=== PATIENT | female | born 1990 | race Caucasian/White ===

== ENCOUNTER 2016-08-31 02:05 | Inpatient (IN) | payer BC ==
[2016-08-31 03:04] LABS: APPEARANCE,URINE SLIGHTLY-CLOUDY; BILIRUBIN,URINE NEGATIVE (NEGATIVE); GLUCOSE, URINE NEGATIVE (NEGATIVE); KETONES,URINE NEGATIVE (NEGATIVE); LEUKOCYTE ESTERASE,URINE SMALL (NEGATIVE); NITRITE,URINE NEGATIVE (NEGATIVE); PROTEIN,URINE NEGATIVE (NEGATIVE); URINE SPECIFIC GRAVITY 1.005; UROBILINOGEN,URINE NEGATIVE mg/dL (<2.0)
[2016-08-31 04:12] LABS: URINE BARBITURATES SCREEN NEGATIVE; URINE METHADONE SCREEN NEGATIVE; URINE OPIATES LOW NEGATIVE; URINE PHENCYCLIDINE SCREEN NEGATIVE
[2016-08-31] MEDS ORDERED: RINGERS SOLUTION,LACTATED 1,000 ML IV ONE (06:01)
[2016-08-31 06:10] LABS: ABSOLUTE MONOCYTES (AUTO) 0.7 10^3/uL (0.1-1.4); ABSOLUTE NEUT (AUTO) 15.5 10^3/uL (1.7-8.2); BASOPHILS % (AUTO) 0.2 % (0-2); HEMATOCRIT 38.7 % (36.0-47.0); HEMOGLOBIN 12.7 g/dL (12.0-15.5); HGB HCT DIFFERENCE -0.6; LYMPHOCYTES % (AUTO) 10.9 % (13-45); MEAN CORPUSCULAR HEMOGLOBIN 27.5 pg (27.0-33.4); MEAN CORPUSCULAR HGB CONC 32.9 g/dL (32.0-36.0); MEAN CORPUSCULAR VOLUME 84 fl (80-97); MONOCYTES % (AUTO) 3.9 % (3-13); RED BLOOD COUNT 4.62 10^6/uL (3.72-5.28); RED CELL DISTRIBUTION WIDTH 14.6 % (11.5-14.0); WHITE BLOOD COUNT 18.3 10^3/uL (4.0-10.5)
[2016-08-31] MEDS ORDERED: NALBUPHINE HCL INJ 10 MG/1 ML AMPULE ONE ×2 (06:34→10:42)
[2016-08-31] MEDS ORDERED: NALBUPHINE HCL INJ 10 MG/1 ML AMPULE INJ ONE (06:36)
[2016-08-31] MEDS ORDERED: OXYTOCIN/NORMAL SALINE 20 UNIT/1,000 ML RTUINJ ONE (08:11)
[2016-08-31] MEDS ORDERED: LIDOCAINE 1% INJ-PF (10 MG/ML) 30 ML SDV ONE (08:11)
[2016-08-31] MEDS ORDERED: MISOPROSTOL 0.2 MG TABLET ONE (08:11)
[2016-08-31] MEDS ORDERED: FENTANYL CITRATE INJ/PF 100 MCG/2 ML AMPUL ONE ×2 (10:44→10:47)
[2016-08-31] MEDS ORDERED: METHYLERGONOVINE MALEATE INJ/PF 0.2 MG/1 ML AMPULE ONE (12:45)
[2016-08-31] MEDS ORDERED: BENZOCAINE/MENTHOL AEROSOL SPRAY 56 ML ONE ×2 (13:21→15:15)
[2016-08-31] MEDS ORDERED: MEASLES,MUMPS&RUBELLA VACC/PF 0.5 ML VIAL SUBCUT PRN (13:27)
[2016-08-31] MEDS ORDERED: OXYTOCIN/NORMAL SALINE 1,000 ML IV PRN (13:27)
[2016-08-31] MEDS ORDERED: METHYLERGONOVINE MALEATE INJ/PF 0.2 MG/1 ML AMPULE IM PRN (13:27)
[2016-08-31] MEDS ORDERED: DIPH/PERTUSS(ACELL)/TETANUS VAC/PF 0.5 ML SYR (>=10YO) IM PRN (13:27)
[2016-08-31] MEDS ORDERED: BENZOCAINE/MENTHOL AEROSOL SPRAY 56 ML TOP PRN (13:27)
[2016-08-31] MEDS ORDERED: ZOLPIDEM TARTRATE 5 MG TABLET PO PRN (13:27)
[2016-08-31] MEDS ORDERED: ACETAMINOPHEN WITH CODEINE #3 TABLET PO PRN ×2 (13:27)
[2016-08-31] MEDS ORDERED: DIBUCAINE 1% OINTMENT 28 GM TP PRN (13:27)
--- NOTE | 2016-08-31 15:36 | Admission Physical ---
Datetime Report Generated by CPN: 08/31/2016 15:35 CURRENT ADMISSION Chief Complaint: Uterine Contractions Indication for Induction: Not Applicable Admit Plan: Admit to Unit; Initiate Labor Protocol ALLERGIES Medication Allergies: Yes Medication Allergies: Pertussis Vaccines (08/31/2016) Medication Allergies: Pertussis Vaccines (08/31/2016), medical tape Latex: No Latex Allergies OBSTETRICAL HISTORY EDC: 09/02/2016 00:00 : 1 Para: 0 Term: 0 : 0 SAB: 0 IAB: 0 Ectopic: 0 Livin Cesareans: 0 VBACs: 0 Multiple Births: 0 Gestational Diabetes: Yes Rh Sensitization: No Incompetent Cervix: No DERECK: No Infertility: No ART Treatment: No Uterine Anomaly: No IUGR: No Hx Previous C/S: No Macrosomia: No Hx Loss/Stillborn: No PIH: No Hx : No Placenta Previa/Abruption: No Depression/PP Depression: No PTL/PROM: No Post Hemorrhage: No Current Procedures: Ultrasound; NST Obstetrical History Comments: G1 - Current, GDM- diet controlled SEE RECORDS Alcohol: No Marijuana : No Cocaine: No Other Illicit Drugs: No Cigarettes: Never Smoker. [id number] MEDICAL HISTORY Diabetes: Yes Diabetes Type: Gestational Diabetes Blood Transfusion: No Pulmonary Disease (Asthma, TB): No Breast Disease: No Hypertension: No Managing Editor Surgery: No Heart Disease: No Hosp/Surgery: No Autoimmune Disorder: No Anesthetic Complications: No Kidney Disease: No Abnormal Pap Smear: No Neuro/Epilepsy: No Psychiatric Disorders: No Other Medical Diseases: No Hepatitis/Liver Disease: No Significant Family History: No Varicosities/Phlebitis: No Trauma/Violence : No Thyroid Dysfunction: No INFECTIOUS HISTORY Gonorrhea: No Genital Herpes: No Chlamydia: No Tuberculosis: No Syphilis: No Hepatitis: No HIV/AIDS Exposure: No Rash or Viral Illness: No HPV: No PHYSICAL EXAM General: Normal HEENT: Normal Neurologic: Normal Thyroid: Normal Heart: Normal Lungs: Normal Breast: Normal Back: Normal Abdomen: Normal Genitourinary Exam: Normal Extremities: Normal DTRs: Normal Pelvic Type: Adequate Vital Signs: Reviewed; Within Normal Limits VAGINAL EXAM Dilatation: 5 Effacement: 90 Station: -2 Contraction Comments: 2-3 min MEMBRANES Pooling: Negative Membranes: Intact FETUS A EGA: 39.5 Monitoring: External US FHR- Baseline: 150 Variability: Moderate 6-25bpm Accelerations: 10X10 Decelerations: Variable FHR Category: Category II Estimated Weight (gm): 3900 Presentation: Vertex PLANS FOR LABOR AND DELIVERY Labor and Delivery: None Pain Management: Natural Feeding Preference: Breast Benefit of Breast Feed Discussed: Yes Circumcision: Yes INFORMED CONSENT Signature: with User ID: Ryan
[2016-08-31] MEDS: IBUPROFEN 800 MG TABLET PO SCH ×2 (16:50→21:17)
--- NOTE | 2016-08-31 17:16 | Delivery Summary ---
Del Sum A-C Datetime Report Generated by CPN: 08/31/2016 17:16 DELIVERY PERSONNEL DELIVERY PERSONNEL: [id number] Delivery Doctor:: Rios Renee, DO Labor and Delivery Nurse:: Nani Kahn RNbait maker Nurse:: Chayito Gaona RN Layout Inspector/CATEGORY DIRECTOR: Columba Damir, INWARD TOLL OPERATOR MATERNAL INFORMATION Delivery Anesthesia: Local Medications After Delivery: Pitocin Drip 20 Units/1000ml NSS Meds After Delivery Comment: Pitocin 20 units in 1000mL NS Estimated Blood Loss (ml): 300 Maternal Complications: None Provider Comments: of viable male in OLIVIA position Loose nuchal cord x1, easily reduced Placenta delievered spontaneous and intact with 3v cord Fundus firm after Methergine LABOR SUMMARY EDC: 09/02/2016 00:00 No. Babies in Womb: 1 Labor Anesthesia: None LABOR INFORMATION Reason for Induction: Not Applicable Onset of Labor: 08/31/2016 01:30 Complete Dilatation: 08/31/2016 11:17 Oxytocin: N/A Group B Beta Strep: negative Antibiotics # of Doses: 0 Steroids Given: None Reason Steroids Not Administered: Not Applicable MEMBRANES Membranes Rupture Method: Artificial Rupture of Membranes: 08/31/2016 11:17 Length of Rupture (hr): 1.30 Amniotic Fluid Color: Clear Amniotic Fluid Amount: Small Amniotic Fluid Odor: Normal STAGES OF LABOR Stage 1 hr: 9 Stage 1 min: 47 Stage 2 hr: 1 Stage 2 min: 18 Stage 3 hr: 0 Stage 3 min: 2 Total Time in Labor hr: 11 Total Time in Labor min: 7 VAGINAL DELIVERY Episiotomy: None Laceration Extension: Second Degree Laceration Type: Perineal Laceration Repair: Yes Laceration Repair Note: Repaired with 2-0 chromic in usual fashion and with good hemostasis Sponge Count Correct: Yes Sharps Count Correct: Yes BABY A INFORMATION Infant Delivery Date/Time: 08/31/2016 12:35 Method of Delivery: Vaginal Born in Route : No : N/A Forceps: N/A Vacuum Extraction: N/A Shoulder Dystocia : No PRESENTATION/POSITION BABY A Presentation: Cephalic Cephalic Presentation: Vertex PLACENTA INFORMATION BABY A Placenta Delivery Time : 08/31/2016 12:37 Placenta Method of Delivery: Spontaneous Placenta Status: Delivered SCORES BABY A Heart Rate 1 min: >100 bpm Resp Effort 1 min: Good Cry Reflex Irritability 1 min: Cough or Sneeze or Pulls Away Muscle Tone 1 min: Active Motion Color 1 min: Blue/Pale Resuscitation Effort 1 min: Tactile Stimulation SCORE 1 MIN: 8 Heart Rate 5 min: >100 bpm Resp Effort 5 min: Good Cry Reflex Irritability 5 min: Cough or Sneeze or Pulls Away Muscle Tone 5 min: Active Motion Color 5 min: Blue/Pale Resuscitation Effort 5 min: Tactile Stimulation SCORE 5 MIN: 8 INFORMATION BABY A Gestational Age at Delivery: 39.5 Gestational Status: Full Term- 39- 40.6 Weeks Outcome : Liveborn Infant Condition : Stable Infant Sex: Male IDENTIFICATION BABY A Infant Verification Date/Time: 08/31/2016 13:10 ID Band Number: [id number] Mother's Name Verified: Yes Infant RN Verifying Infant: B Baidy RN Additional Verifying Personnel: A Joyce RN CORD INFORMATION BABY A No. Cord Vessels: 3 Nuchal Cord : Around Neck x1, Loose Cord Blood Taken: Yes-For Eval (Mom's Blood Type - or O+) ASSESSMENT BABY A Infant Complications: None Physical Findings at Delivery: Within Normal Limits Infant Respirations: Appears Normal Skin to Skin: Yes Supervisor Bonding/ALS Called : No Care By: Trip Gaona RN Transferred To: Remains with Mother SIGNATURES Signature: with User ID: Kojo
[2016-08-31] MEDS: DOCUSATE SODIUM 100 MG CAPSULE PO SCH (17:23)
[2016-08-31] MEDS: FERROUS SULFATE 325 MG TABLET PO SCH (17:23)
[2016-09-01] MEDS: IBUPROFEN 800 MG TABLET PO SCH ×3 (05:42→21:36)
[2016-09-01 06:45] LABS: HEMATOCRIT 33.6 % (36.0-47.0); HEMOGLOBIN 10.9 g/dL (12.0-15.5); HGB HCT DIFFERENCE -0.9; MEAN CORPUSCULAR HEMOGLOBIN 27.7 pg (27.0-33.4); MEAN CORPUSCULAR HGB CONC 32.6 g/dL (32.0-36.0); MEAN CORPUSCULAR VOLUME 85 fl (80-97); RED BLOOD COUNT 3.95 10^6/uL (3.72-5.28); RED CELL DISTRIBUTION WIDTH 14.6 % (11.5-14.0); WHITE BLOOD COUNT 18.7 10^3/uL (4.0-10.5)
--- NOTE | 2016-09-01 10:15 | PDOC PROGRESS REPORT ---
Subjective-OB Subjective: Post Delivery Day: 26 year old. Denies any needs at this time Physical Exam (OB) Vital Signs: Temp Pulse Resp BP Pulse Ox 97.7 F 100 18 123/69 98 09/01/16 08:27 09/01/16 08:27 09/01/16 08:27 09/01/16 08:27 09/01/16 08:27 Intake & Output 08/31/16 09/01/16 09/02/16 06:59 06:59 06:59 Intake Total 1050 Balance 1050 Weight 116.95 kg - Lochia Lochia Amount: Scant < 10 ml Lochia Color: Rubra/Red - Abdomen Description: Tender, Soft Hernia Present: No Bowel Sounds: Normoactive Flatus Presence: Present Stool: No Fundal Description: Firm, Midline Fundal Height: u/u - u/2 Objective-Diagnostic Laboratory: 09/01/16 06:33 09/01/16 06:33 WBC 18.7 H RBC 3.95 Hgb 10.9 L Hct 33.6 L MCV 85 MCH 27.7 MCHC 32.6 RDW 14.6 H Plt Count 449
[2016-09-01] MEDS: PRENATAL VITAMIN W-O CA NO5/FE FUMARATE/FA CAPSULE PO SCH (10:36)
[2016-09-01] MEDS: SENNOSIDES/DOCUSATE 8.6-50 MG 1 EACH TABLET PO SCH (10:36)
[2016-09-01] MEDS: DOCUSATE SODIUM 100 MG CAPSULE PO SCH ×2 (10:36→18:00)
[2016-09-01] MEDS: FERROUS SULFATE 325 MG TABLET PO SCH ×2 (10:36→18:00)
[2016-09-02] MEDS: IBUPROFEN 800 MG TABLET PO SCH ×3 (05:22→21:00)
[2016-09-02 07:50] LABS: HEMATOCRIT 32.5 % (36.0-47.0); HEMOGLOBIN 10.6 g/dL (12.0-15.5); HGB HCT DIFFERENCE -0.7; MEAN CORPUSCULAR HEMOGLOBIN 27.7 pg (27.0-33.4); MEAN CORPUSCULAR HGB CONC 32.6 g/dL (32.0-36.0); MEAN CORPUSCULAR VOLUME 85 fl (80-97); RED BLOOD COUNT 3.81 10^6/uL (3.72-5.28); RED CELL DISTRIBUTION WIDTH 14.7 % (11.5-14.0); WHITE BLOOD COUNT 10.9 10^3/uL (4.0-10.5)
--- NOTE | 2016-09-02 09:43 | PDOC PROGRESS REPORT ---
Subjective-OB Subjective: Post Delivery Day: 26 year old. Denies any needs at this time Doing well, OOB in halls, voiding, taking diet well, scant bleeding Physical Exam (OB) Vital Signs: Temp Pulse Resp BP Pulse Ox 98.1 F 99 12 114/60 99 09/02/16 07:28 09/02/16 07:28 09/02/16 07:28 09/02/16 07:28 09/02/16 07:28 Intake & Output 09/01/16 09/02/16 09/03/16 06:59 06:59 06:59 Intake Total 1050 400 Balance 1050 400 - Lochia Lochia Amount: Small 10-25 ml Lochia Color: Rubra/Red - Abdomen Description: Tender, Soft Hernia Present: No Fundal Description: Firm, Midline Fundal Height: u/u - u/2 Objective-Diagnostic Laboratory: 09/02/16 07:35 09/02/16 07:35 WBC 10.9 H RBC 3.81 Hgb 10.6 L Hct 32.5 L MCV 85 MCH 27.7 MCHC 32.6 RDW 14.7 H Plt Count 431 Assessment and Plan(PN) - Assessment and Plan (1) Gestational diabetes mellitus (GDM) Qualifiers: Gestational diabetes mellitus control: diet-controlled Trimester: second trimester Qualified Code(s): O24.410 - Gestational diabetes mellitus in , diet controlled Is this a current diagnosis for this admission?: Yes (2) Delivery normal Is this a current diagnosis for this admission?: Yes - Time Spent with Patient Time with patient: Less than 15 minutes Medications reviewed and adjusted accordingly: Yes - Disposition Anticipated Discharge: Home Within: Other - home today
--- NOTE | 2016-09-02 09:49 | PDOC DISCHARGE SUMMARY ---
Final Diagnosis Discharge Date: 09/02/16 - Final Diagnosis (1) Gestational diabetes mellitus (GDM) Is this a current diagnosis for this admission?: Yes (2) Delivery normal Is this a current diagnosis for this admission?: Yes Discharge Data - Discharge Medication Home Medications: Pnv #116/Iron Fumarate/FA/Dha [Expecta Combo Pack] 1 each PO DAILY 01/07 Gestational Age: 39.5 Reason(s) for Admission: Onset of Labor, Gestional Diabetes Procedures: NST, Ultrasound Intrapartum Procedure(s): Spontaneous Vaginal Delivery Complication(s): Laceration-Perineal Laceration-Degree: 2nd - Data Baby 1 Male at 1 minute: 8 at 5 minutes: 8 Home with Mother: Yes Complications: No - Diagnosis Test Laboratory: Temp Pulse Resp BP Pulse Ox 98.1 F 99 12 114/60 99 09/02/16 07:28 09/02/16 07:28 09/02/16 07:28 09/02/16 07:28 09/02/16 07:28 08/31/16 08/31/16 09/01/16 02:40 05:51 06:33 RBC 4.62 3.95 Hgb 12.7 10.9 L Hct 38.7 33.6 L Urine Opiates Screen NEGATIVE 09/02/16 07:35 RBC 3.81 Hgb 10.6 L Hct 32.5 L Urine Opiates Screen - Discharge information/Instructions Discharge Activity: Activity As Tolerated, No Lifting Over 10 Pounds, No Lifting /Push/Pulling, Pelvic Rest Discharge Diet: As Tolerated Disposition: HOME, SELF-CARE Follow up with: [facility] in: 4, Weeks
[2016-09-02] MEDS: SENNOSIDES/DOCUSATE 8.6-50 MG 1 EACH TABLET PO SCH (10:26)
[2016-09-02] MEDS: PRENATAL VITAMIN W-O CA NO5/FE FUMARATE/FA CAPSULE PO SCH (10:26)
[2016-09-02] MEDS: DOCUSATE SODIUM 100 MG CAPSULE PO SCH ×2 (10:27→18:00)
[2016-09-02] MEDS: FERROUS SULFATE 325 MG TABLET PO SCH ×2 (10:27→18:00)
--- NOTE | 2016-09-02 14:24 | PDOC PROGRESS REPORT ---
Subjective-OB Subjective: Post Delivery Day: 26 year old. Denies any needs at this time lying in bed, nurses starting IV, no c/o, states earlier she was cold and shaking, denies pain or feeling bad, hsb at BS Physical Exam (OB) Vital Signs: Temp Pulse Resp BP Pulse Ox 102.9 F H 148 H 20 121/57 L 100 09/02/16 13:49 09/02/16 13:49 09/02/16 13:49 09/02/16 13:49 09/02/16 13:49 Intake & Output 09/01/16 09/02/16 09/03/16 06:59 06:59 06:59 Intake Total 1050 400 400 Balance 1050 400 400 - General General Appearance: Anxious In distress: None Note:: face flushed, can feel heart racing but she was anxious - Lochia Lochia Amount: Small 10-25 ml Lochia Color: Rubra/Red - Abdomen Description: Firm Hernia Present: No Fundal Description: Firm Fundal Height: u/u - u/2 - Respiratory Chest Status: Nontender Breath sounds: Clear Chest Palpation: Normal - Cardiovascular Rhythm: Tachycardia, Other - pulse - Genitourinary Lochia: Mild - Extremities Lower extremities: Normal inspection Hip: Normal Thigh: Normal Knee: Normal Calf: Normal - good capillary refill Ankle: Normal Foot: Normal - Neurological Orientation: Alert Speech: Normal Sensory: Normal - Psychological Associated symptoms: Normal mood, Anxious - Skin Skin Temperature: Hot Skin Moisture: Dry, Moist Skin Color: Flushed Skin note:: face flushed Objective-Diagnostic Laboratory: 09/02/16 07:35 09/02/16 07:35 WBC 10.9 H RBC 3.81 Hgb 10.6 L Hct 32.5 L MCV 85 MCH 27.7 MCHC 32.6 RDW 14.7 H Plt Count 431 Assessment and Plan(PN) - Assessment and Plan (1) Gestational diabetes mellitus (GDM) Qualifiers: Gestational diabetes mellitus control: diet-controlled Trimester: second trimester Qualified Code(s): O24.410 - Gestational diabetes mellitus in , diet controlled Is this a current diagnosis for this admission?: Yes (2) Delivery normal Is this a current diagnosis for this admission?: Yes - Time Spent with Patient Medications reviewed and adjusted accordingly: Yes - Disposition Anticipated Discharge: Home Within: within 48 hours - cancel d/C, discussed POC with pt and Dr. Fan, Dr. Fan will write orders for antibiotics, blood cultures, CMP, chest xray, Tylenol now for fever
[2016-09-02] MEDS ORDERED: ACETAMINOPHEN 325 MG TABLET PO ONE (14:30)
--- NOTE | 2016-09-02 15:25 | RADIOLOGY REPORT (SQ) ---
EXAM DESCRIPTION: CHEST PA/LAT COMPLETED DATE/TIME: 09/02/2016 2:49 pm REASON FOR STUDY: elevated HR, temp 102.9 COMPARISON: None. EXAM PARAMETERS: NUMBER OF VIEWS: two views TECHNIQUE: Digital Frontal and Lateral radiographic views of the chest acquired. RADIATION DOSE: NA LIMITATIONS: none FINDINGS: LUNGS AND PLEURA: No opacities, masses or pneumothorax. No pleural effusion. MEDIASTINUM AND HILAR STRUCTURES: No masses or contour abnormalities. HEART AND VASCULAR STRUCTURES: Heart normal size. No evidence for failure. BONES: No acute findings. HARDWARE: None in the chest. OTHER: No other significant finding. IMPRESSION: NO SIGNIFICANT RADIOGRAPHIC FINDING IN THE CHEST. TECHNICAL DOCUMENTATION: JOB ID: [id number] [employer]- All Rights Reserved
[2016-09-02 15:44] LABS: VENOUS BLOOD BASE EXCESS -1.1 mmol/L; VENOUS BLOOD HCO3 21.3 mmol/L (20-32); VENOUS BLOOD PCO2 29.1 mmHg (35-63); VENOUS BLOOD PH 7.48 (7.30-7.42)
[2016-09-02 15:46] LABS: PROTHROMBIN TIME 12.9 SEC (11.4-15.4)
[2016-09-02 16:00] LABS: ALANINE AMINOTRANSFERASE 44 U/L (9-52); ALBUMIN 3.1 g/dL (3.5-5.0); ALKALINE PHOSPHATASE 132 U/L (38-126); ANION GAP 13 (5-19); ASPARTATE AMINO TRANSFERASE 68 U/L (14-36); BILIRUBIN,DIRECT 0.3 mg/dL (0.0-0.4); BILIRUBIN,TOTAL 0.8 mg/dL (0.2-1.3); BLOOD UREA NITROGEN 8 mg/dL (7-20); CALCIUM 8.7 mg/dL (8.4-10.2); CARBON DIOXIDE 18 mmol/L (22-30); CHLORIDE 105 mmol/L (98-107); CREATININE RESULT 0.64 mg/dL (0.52-1.25); GLUCOSE 100 mg/dL (75-110); POTASSIUM 3.8 mmol/L (3.6-5.0); SODIUM 136.1 mmol/L (137-145); TOTAL PROTEIN 6.2 g/dL (6.3-8.2)
[2016-09-02] MEDS ORDERED: PIPERACILLIN/TAZOBACTAM 3.375 GM VIAL IV SCH (16:00)
--- NOTE | 2016-09-02 16:02 | PDOC CONSULTATION ---
Consultation Attending physician:: KOREY HOFFMAN Consult reason:: Fever 2 days History of Present Illness Admission Date/PCP: 08/31/16 05:45 GREGORY BERNAL MD Patient complains of: Fever History of Present Illness: WIN GORMAN is a 26 year old female significant past medical history who is 2-1/2 days . She was going to be discharged home today however when they did her vitals for discharge she was noted to have a fever of almost 103 and a tachycardia with heart rate of 140. The patient denies any complaints. She denies any cough. Denies any chest pain or shortness of breath. Denies any nausea vomiting or abdominal pain. Patient has a scant amount of lochia. She denies any pain in her perineum. Denies any lower extremity edema. Denies any skin rashes or breakdown. Past Medical History Cardiac Medical History: Reports: None Pulmonary Medical History: Reports: None EENT Medical History: Reports: None Neurological Medical History: Reports: None Endocrine Medical History: Reports: None Renal/ Medical History: Reports: None Malignancy Medical History: Reports: None GI Medical History: Reports: None Musculoskeltal Medical History: Reports: None Psychiatric Medical History: Reports: None Hematology: Reports: None Infectious Medical History: Reports: None Social History Information Source: Patient Lives with: Spouse/Significant other Smoking Status: Never Smoker Frequency of Alcohol Use: None Hx Recreational Drug Use: No Drugs: None - Advance Directive Resuscitation Status: Full Code Family History Family History: Both of her parents are still living. Her father has diabetes. Parental Family History Reviewed: Yes Children Family History Reviewed: No Sibling(s) Family History Reviewed.: No Medication/Allergy Home Medications: Pnv #116/Iron Fumarate/FA/Dha [Expecta Combo Pack] 1 each PO DAILY 01/07 Allergies/Adverse Reactions: Pertussis Vaccines Allergy (Verified 08/31/16 02:23) tape Allergy (Uncoded 08/31/16 02:23) Review of Systems Constitutional: PRESENT: fever(s). ABSENT: chills, headache(s), weight gain, weight loss Eyes: ABSENT: visual disturbances Ears: ABSENT: hearing changes Cardiovascular: ABSENT: chest pain, dyspnea on exertion, edema, orthropnea, palpitations Respiratory: ABSENT: cough, hemoptysis Gastrointestinal: ABSENT: abdominal pain, constipation, diarrhea, hematemesis, hematochezia, nausea, vomiting Genitourinary: ABSENT: dysuria, hematuria Musculoskeletal: ABSENT: joint swelling Integumentary: ABSENT: rash, wounds Neurological: ABSENT: abnormal gait, abnormal speech, confusion, dizziness, focal weakness, syncope Psychiatric: ABSENT: anxiety, depression Endocrine: ABSENT: cold intolerance, heat intolerance, polydipsia, polyuria Hematologic/Lymphatic: ABSENT: easy bleeding, easy bruising Physical Exam Vital Signs: Temp Pulse Resp BP Pulse Ox 102.9 F H 148 H 20 121/57 L 100 09/02/16 13:49 09/02/16 13:49 09/02/16 13:49 09/02/16 13:49 09/02/16 13:49 Intake & Output 09/01/16 09/02/16 09/03/16 06:59 06:59 06:59 Intake Total 1050 400 400 Balance 1050 400 400 General appearance: PRESENT: no acute distress, well-developed, well-nourished Head exam: PRESENT: atraumatic, normocephalic Eye exam: PRESENT: conjunctiva pink, EOMI, PERRLA. ABSENT: scleral icterus Ear exam: PRESENT: normal external ear exam Mouth exam: PRESENT: moist, tongue midline Neck exam: ABSENT: carotid bruit, JVD, lymphadenopathy, thyromegaly Respiratory exam: PRESENT: clear to auscultation tung. ABSENT: rales, rhonchi, wheezes Cardiovascular exam: PRESENT: RRR. ABSENT: diastolic murmur, rubs, systolic murmur Pulses: PRESENT: normal dorsalis pedis pul Vascular exam: PRESENT: normal capillary refill GI/Abdominal exam: PRESENT: normal bowel sounds, soft. ABSENT: distended, guarding, mass, organolmegaly, rebound, tenderness Rectal exam: PRESENT: deferred Extremities exam: PRESENT: pedal edema - Trace pedal edema. ABSENT: calf tenderness, clubbing Neurological exam: PRESENT: alert, awake, oriented to person, oriented to place , oriented to time, oriented to situation, CN II-XII grossly intact. ABSENT: motor sensory deficit Psychiatric exam: PRESENT: appropriate affect Skin exam: PRESENT: dry, intact, warm. ABSENT: cyanosis, rash Results Laboratory Results: 09/02/16 07:35 09/02/16 09/02/16 07:35 15:15 WBC 10.9 H RBC 3.81 Hgb 10.6 L Hct 32.5 L MCV 85 MCH 27.7 MCHC 32.6 RDW 14.7 H Plt Count 431 VBG pH 7.48 H VBG pCO2 29.1 L VBG HCO3 21.3 VBG Base Excess -1.1 Impressions: Chest X-Ray 09/02/16 14:16 IMPRESSION: NO SIGNIFICANT RADIOGRAPHIC FINDING IN THE CHEST. Assessment & Plan - Diagnosis (1) Puerperal fever, Is this a current diagnosis for this admission?: YesPlan: Has no obvious source for fever. Her chest x-ray looked clear. She has no cough, no abdominal pain, no skin rashes. This may represent a viral syndrome however I agree with starting her empirically on the antibiotics Zosyn. If she remains afebrile overnight or her fever curve seen she could be sent home on Augmentin although I am not certain what we are treating. I agree with watching overnight to make certain that no obvious infection declares itself (2) Gestational diabetes mellitus (GDM) Qualifiers: Gestational diabetes mellitus control: diet-controlled Trimester: second trimester Qualified Code(s): O24.410 - Gestational diabetes mellitus in , diet controlled Is this a current diagnosis for this admission?: Yes - Time Time Spent: 30 to 50 Minutes - Plan Summary Plan Summary: If her fever curve decreases she could be sent home on a course of Augmentin tomorrow although it is not clear what we are treating. This may represent a viral syndrome.
[2016-09-02] MEDS: PIPERACILLIN SODIUM/TAZOBACTAM 3.375 GM in NORMAL SALINE 100 ML IV SCH (18:00)
[2016-09-02 23:00] LABS: APPEARANCE,URINE CLOUDY; BILIRUBIN,URINE NEGATIVE (NEGATIVE); GLUCOSE, URINE NEGATIVE (NEGATIVE); KETONES,URINE NEGATIVE (NEGATIVE); LEUKOCYTE ESTERASE,URINE MODERATE (NEGATIVE); NITRITE,URINE NEGATIVE (NEGATIVE); PROTEIN,URINE 100 mg/dL (NEGATIVE); URINE SPECIFIC GRAVITY 1.031; UROBILINOGEN,URINE NEGATIVE mg/dL (<2.0)
[2016-09-03] MEDS: PIPERACILLIN SODIUM/TAZOBACTAM 3.375 GM in NORMAL SALINE 100 ML IV SCH ×3 (00:05→12:19)
[2016-09-03] MEDS: IBUPROFEN 800 MG TABLET PO SCH ×2 (05:28→14:22)
[2016-09-03 09:09] VITALS: BP 123/76
--- NOTE | 2016-09-03 09:10 | PDOC PROGRESS REPORT ---
Subjective-OB Subjective: Post Delivery Day: 26 year old. Denies any needs at this time. Shivering at 0515 this am-temp elevated. Feels fine at this time-no body aches, breast pain, foul discharge. Physical Exam (OB) Vital Signs: Temp Pulse Resp BP Pulse Ox 98.2 F 128 H 15 123/76 99 09/03/16 07:51 09/03/16 07:51 09/03/16 07:51 09/03/16 07:51 09/03/16 07:51 Intake & Output 09/02/16 09/03/16 09/04/16 06:59 06:59 06:59 Intake Total 400 700 Balance 400 700 - Lochia Lochia Amount: Small 10-25 ml Lochia Color: Rubra/Red - Abdomen Description: Soft, Round Hernia Present: No Bowel Sounds: Normoactive Flatus Presence: Present Stool: Yes Fundal Description: Firm, Midline Fundal Height: u/u - u/2 Objective-Diagnostic Laboratory: 09/02/16 07:35 09/02/16 15:15 09/02/16 09/02/16 09/02/16 15:15 15:15 15:15 VBG pH 7.48 H VBG pCO2 29.1 L VBG HCO3 21.3 VBG Base Excess -1.1 Sodium 136.1 L Potassium 3.8 Chloride 105 Carbon Dioxide 18 L Anion Gap 13 BUN 8 Creatinine 0.64 Est GFR ( Amer) > 60 Est GFR (Non-Af Amer) > 60 Glucose 100 Lactic Acid 1.8 Calcium 8.7 Total Bilirubin 0.8 AST 68 H ALT 44 Alkaline Phosphatase 132 H Total Protein 6.2 L Albumin 3.1 L Urine Color Urine Appearance Urine pH Ur Specific [place] Urine Protein Urine Glucose (UA) Urine Ketones Urine Blood Urine Nitrite Ur Leukocyte Esterase Urine WBC (Auto) Urine RBC (Auto) 09/02/16 22:30 VBG pH VBG pCO2 VBG HCO3 VBG Base Excess Sodium Potassium Chloride Carbon Dioxide Anion Gap BUN Creatinine Est GFR ( Amer) Est GFR (Non-Af Amer) Glucose Lactic Acid Calcium Total Bilirubin AST ALT Alkaline Phosphatase Total Protein Albumin Urine Color YELLOW Urine Appearance CLOUDY Urine pH 5.0 Ur Specific [place] 1.031 Urine Protein 100 H Urine Glucose (UA) NEGATIVE Urine Ketones NEGATIVE Urine Blood LARGE H Urine Nitrite NEGATIVE Ur Leukocyte Esterase MODERATE H Urine WBC (Auto) >182 Urine RBC (Auto) >182 Assessment and Plan(PN) - Time Spent with Patient Medications reviewed and adjusted accordingly: Yes - Disposition Anticipated Discharge: Home
[2016-09-03] MEDS: DOCUSATE SODIUM 100 MG CAPSULE PO SCH (10:01)
[2016-09-03] MEDS: PRENATAL VITAMIN W-O CA NO5/FE FUMARATE/FA CAPSULE PO SCH (10:01)
[2016-09-03] MEDS: SENNOSIDES/DOCUSATE 8.6-50 MG 1 EACH TABLET PO SCH (10:01)
[2016-09-03] MEDS: FERROUS SULFATE 325 MG TABLET PO SCH (10:02)
[2016-09-03 10:32] LABS: HEMATOCRIT 32.6 % (36.0-47.0); HEMOGLOBIN 10.5 g/dL (12.0-15.5); HGB HCT DIFFERENCE -1.1; MEAN CORPUSCULAR HEMOGLOBIN 27.1 pg (27.0-33.4); MEAN CORPUSCULAR HGB CONC 32.2 g/dL (32.0-36.0); MEAN CORPUSCULAR VOLUME 84 fl (80-97); RED BLOOD COUNT 3.88 10^6/uL (3.72-5.28); RED CELL DISTRIBUTION WIDTH 14.9 % (11.5-14.0); WHITE BLOOD COUNT 20.8 10^3/uL (4.0-10.5)
[2016-09-03 10:55] LABS: BAND NEUTROPHILS % (MANUAL) 4 % (3-5); TOTAL CELLS COUNTED 100
[2016-09-03 10:56] LABS: BASOPHILS % (MANUAL) 0 % (0-2); EOSINOPHILS % (MANUAL) 0 % (0-6); LYMPHOCYTES % (MANUAL) 14 % (13-45); POLYCHROMASIA SLIGHT; TOXIC GRANULATION SLIGHT
--- NOTE | 2016-09-03 13:31 | PDOC PROGRESS REPORT ---
Subjective-OB Subjective: Post Delivery Day: 26 year old. Denies any needs at this time. Ready for discharge-will go home on antibiotics. Physical Exam (OB) Vital Signs: Temp Pulse Resp BP Pulse Ox 98.2 F 128 H 15 123/76 99 09/03/16 07:51 09/03/16 07:51 09/03/16 07:51 09/03/16 07:51 09/03/16 07:51 Intake & Output 09/02/16 09/03/16 09/04/16 06:59 06:59 06:59 Intake Total 400 700 550 Balance 400 700 550 - Lochia Lochia Amount: Small 10-25 ml Lochia Color: Rubra/Red - Abdomen Description: Soft, Round Hernia Present: No Bowel Sounds: Normoactive Flatus Presence: Present Stool: Yes Fundal Description: Firm, Midline Fundal Height: u/u - u/2 Objective-Diagnostic Laboratory: 09/03/16 10:10 09/02/16 15:15 09/02/16 09/02/16 09/02/16 15:15 15:15 15:15 WBC RBC Hgb Hct MCV MCH MCHC RDW Plt Count Seg Neutrophils % Lymphocytes % Monocytes % Eosinophils % Basophils % Absolute Neutrophils Absolute Lymphocytes Absolute Monocytes Absolute Eosinophils Absolute Basophils VBG pH 7.48 H VBG pCO2 29.1 L VBG HCO3 21.3 VBG Base Excess -1.1 Sodium 136.1 L Potassium 3.8 Chloride 105 Carbon Dioxide 18 L Anion Gap 13 BUN 8 Creatinine 0.64 Est GFR ( Amer) > 60 Est GFR (Non-Af Amer) > 60 Glucose 100 Lactic Acid 1.8 Calcium 8.7 Total Bilirubin 0.8 AST 68 H ALT 44 Alkaline Phosphatase 132 H Total Protein 6.2 L Albumin 3.1 L Urine Color Urine Appearance Urine pH Ur Specific [place] Urine Protein Urine Glucose (UA) Urine Ketones Urine Blood Urine Nitrite Ur Leukocyte Esterase Urine WBC (Auto) Urine RBC (Auto) 09/02/16 09/03/16 22:30 10:10 WBC 20.8 H RBC 3.88 Hgb 10.5 L Hct 32.6 L MCV 84 MCH 27.1 MCHC 32.2 RDW 14.9 H Plt Count 409 Seg Neutrophils % Not Reportable Lymphocytes % Not Reportable Monocytes % Not Reportable Eosinophils % Not Reportable Basophils % Not Reportable Absolute Neutrophils Not Reportable Absolute Lymphocytes Not Reportable Absolute Monocytes Not Reportable Absolute Eosinophils Not Reportable Absolute Basophils Not Reportable VBG pH VBG pCO2 VBG HCO3 VBG Base Excess Sodium Potassium Chloride Carbon Dioxide Anion Gap BUN Creatinine Est GFR ( Amer) Est GFR (Non-Af Amer) Glucose Lactic Acid Calcium Total Bilirubin AST ALT Alkaline Phosphatase Total Protein Albumin Urine Color YELLOW Urine Appearance CLOUDY Urine pH 5.0 Ur Specific [place] 1.031 Urine Protein 100 H Urine Glucose (UA) NEGATIVE Urine Ketones NEGATIVE Urine Blood LARGE H Urine Nitrite NEGATIVE Ur Leukocyte Esterase MODERATE H Urine WBC (Auto) >182 Urine RBC (Auto) >182 Assessment and Plan(PN) - Time Spent with Patient Medications reviewed and adjusted accordingly: Yes - Disposition Anticipated Discharge: Home
--- NOTE | 2016-09-03 13:44 | PDOC DISCHARGE SUMMARY ---
Final Diagnosis Discharge Date: 09/03/16 - Final Diagnosis (1) Delivery normal Is this a current diagnosis for this admission?: Yes (2) Gestational diabetes mellitus (GDM) Is this a current diagnosis for this admission?: Yes (3) Is this a current diagnosis for this admission?: Yes (4) Puerperal fever, Is this a current diagnosis for this admission?: Yes Discharge Data - Discharge Medication Home Medications: Pnv #116/Iron Fumarate/FA/Dha [Expecta Combo Pack] 1 each PO DAILY 01/07 Amoxicillin/Potassium Clav [Augmentin 500-125 Tablet] 1 tab PO Q12 #30 tablet Ferrous Sulfate [Feosol 325 mg Tablet] 325 mg PO BID #60 tablet 09/03/16 Gestational Age: 39.5 wks Reason(s) for Admission: Onset of Labor Procedures: Ultrasound Intrapartum Procedure(s): Spontaneous Vaginal Delivery Complication(s): Laceration-Perineal Laceration-Degree: 2nd - [place] Data Baby 1 Male at 1 minute: 8 at 5 minutes: 8 Weight: 3.147 kg Home with Mother: Yes Complications: No - Diagnosis Test Laboratory: Temp Pulse Resp BP Pulse Ox 98.2 F 128 H 15 123/76 99 09/03/16 07:51 09/03/16 07:51 09/03/16 07:51 09/03/16 07:51 09/03/16 07:51 08/31/16 08/31/16 09/01/16 02:40 05:51 06:33 RBC 4.62 3.95 Hgb 12.7 10.9 L Hct 38.7 33.6 L Urine Opiates Screen NEGATIVE 09/02/16 09/03/16 07:35 10:10 RBC 3.81 3.88 Hgb 10.6 L 10.5 L Hct 32.5 L 32.6 L Urine Opiates Screen - Discharge information/Instructions Discharge Activity: Activity As Tolerated, Balance Activity w/Rest, No Lifting Over 10 Pounds, No Lifting/Push/Pulling, Pelvic Rest, Slowly Increase Activity, No tub bath Discharge Diet: Regular Disposition: HOME, SELF-CARE Follow up with: [facility] in: 1, Weeks
--- NOTE | 2016-09-03 14:27 | PDOC PROGRESS REPORT ---
Subjective Progress Note for:: 09/03/16 Subjective:: Patient is feeling much better this morning. Still have some temperature spikes last night. Denies diarrhea, vaginal bleeding, pelvic pain, nausea or vomiting, shortness of breath or coughing. No sinus congestion or sore throat. Physical Exam Vital Signs: Temp Pulse Resp BP Pulse Ox 98.2 F 128 H 15 123/76 99 09/03/16 13:41 09/03/16 13:41 09/03/16 13:41 09/03/16 13:41 09/03/16 13:41 Intake & Output 09/02/16 09/03/16 09/04/16 06:59 06:59 06:59 Intake Total 400 700 550 Balance 400 700 550 Baby 1 Male 3.147 kg General appearance: PRESENT: no acute distress, cooperative Head exam: PRESENT: normocephalic Eye exam: PRESENT: EOMI Mouth exam: PRESENT: moist, neck supple Neck exam: ABSENT: JVD Respiratory exam: PRESENT: clear to auscultation tung Cardiovascular exam: PRESENT: RRR. ABSENT: gallop GI/Abdominal exam: PRESENT: soft. ABSENT: distended, tenderness Extremities exam: ABSENT: pedal edema Neurological exam: PRESENT: alert, awake, oriented to person, oriented to place , oriented to time, oriented to situation Skin exam: PRESENT: dry, warm. ABSENT: cyanosis Results Laboratory Results: 09/03/16 10:10 09/02/16 15:15 09/02/16 09/02/16 09/02/16 15:15 15:15 15:15 WBC RBC Hgb Hct MCV MCH MCHC RDW Plt Count Seg Neutrophils % Lymphocytes % Monocytes % Eosinophils % Basophils % Absolute Neutrophils Absolute Lymphocytes Absolute Monocytes Absolute Eosinophils Absolute Basophils VBG pH 7.48 H VBG pCO2 29.1 L VBG HCO3 21.3 VBG Base Excess -1.1 Sodium 136.1 L Potassium 3.8 Chloride 105 Carbon Dioxide 18 L Anion Gap 13 BUN 8 Creatinine 0.64 Est GFR ( Amer) > 60 Est GFR (Non-Af Amer) > 60 Glucose 100 Lactic Acid 1.8 Calcium 8.7 Total Bilirubin 0.8 AST 68 H ALT 44 Alkaline Phosphatase 132 H Total Protein 6.2 L Albumin 3.1 L Urine Color Urine Appearance Urine pH Ur Specific [place] Urine Protein Urine Glucose (UA) Urine Ketones Urine Blood Urine Nitrite Ur Leukocyte Esterase Urine WBC (Auto) Urine RBC (Auto) 09/02/16 09/03/16 22:30 10:10 WBC 20.8 H RBC 3.88 Hgb 10.5 L Hct 32.6 L MCV 84 MCH 27.1 MCHC 32.2 RDW 14.9 H Plt Count 409 Seg Neutrophils % Not Reportable Lymphocytes % Not Reportable Monocytes % Not Reportable Eosinophils % Not Reportable Basophils % Not Reportable Absolute Neutrophils Not Reportable Absolute Lymphocytes Not Reportable Absolute Monocytes Not Reportable Absolute Eosinophils Not Reportable Absolute Basophils Not Reportable VBG pH VBG pCO2 VBG HCO3 VBG Base Excess Sodium Potassium Chloride Carbon Dioxide Anion Gap BUN Creatinine Est GFR ( Amer) Est GFR (Non-Af Amer) Glucose Lactic Acid Calcium Total Bilirubin AST ALT Alkaline Phosphatase Total Protein Albumin Urine Color YELLOW Urine Appearance CLOUDY Urine pH 5.0 Ur Specific [place] 1.031 Urine Protein 100 H Urine Glucose (UA) NEGATIVE Urine Ketones NEGATIVE Urine Blood LARGE H Urine Nitrite NEGATIVE Ur Leukocyte Esterase MODERATE H Urine WBC (Auto) >182 Urine RBC (Auto) >182 Impressions: Chest X-Ray 09/02/16 14:16 IMPRESSION: NO SIGNIFICANT RADIOGRAPHIC FINDING IN THE CHEST. Assessment & Plan - Diagnosis (1) Gestational diabetes mellitus (GDM) Qualifiers: Gestational diabetes mellitus control: diet-controlled Trimester: second trimester Qualified Code(s): O24.410 - Gestational diabetes mellitus in , diet controlled Is this a current diagnosis for this admission?: Yes (2) Puerperal fever, Is this a current diagnosis for this admission?: Yes - Time Time Spent with patient: 25-34 minutes - Plan Summary Plan Summary: Fever and elevated WBC probably related to underlying urinary tract infection or endometritis. Patient day 2. Agree with oral Augmentin. Patient clinically improved, discharged home today by gynecology service. Patient advised to follow-up final results of cultures outpatient with primary care physician or [facility] service. Thank you so much for letting us participate in her care. We will sign off.
== END 2016-09-03 14:34 | disposition home or self-care (01) | DRG 774 ==
LOC: LC 02:05 → LR 05:45 → 2S 15:35
PROVIDERS: ADMIT Obstetrics & Gynecology; ATTEND Obstetrics & Gynecology
PROC: 10E0XZZ Delivery of Products of Conception, External Approach (ICD-10-PCS; principal; 2016-08-31)
PROC: 0KQM0ZZ Repair Perineum Muscle, Open Approach (ICD-10-PCS; 2016-08-31)
PROC: 10907ZC Drainage of Amniotic Fluid, Therapeutic from Products of Conception, Via Natural or Artificial Opening (ICD-10-PCS; 2016-08-31)
PROC: 4A1HXCZ Monitoring of Products of Conception, Cardiac Rate, External Approach (ICD-10-PCS; 2016-08-31)
DX: O24.420 Gestational diabetes mellitus in childbirth, diet controlled (principal); O86.4 Pyrexia of unknown origin following delivery; O70.1 Second degree perineal laceration during delivery; O69.81X0 Labor and delivery complicated by cord around neck, without compression, not applicable or unspecified; Z88.7 Allergy status to serum and vaccine; Z83.3 Family history of diabetes mellitus; Z3A.39 39 weeks gestation of pregnancy; Z37.0 Single live birth
CPT/HCPCS: 36415; 71020; 80053; 80307; 81001; 81005; 82803; 83605; 85025; 85027; 85610; 86592; 86850; 86900; 86901; 87040; 87086; 87088; 87186; J2210; J2300; J2543; J2590; J3010; J3490